=== PATIENT | male | born 1955 | race Caucasian/White ===

== ENCOUNTER 2016-09-17 08:09 | Observation (INO) | payer OTHER ==
[~2016-09-17] VITALS: Ht 180.3 cm; Wt 105.2 kg
[~2016-09-17 08:09] MED LIST: ASPIRIN LOW DOS81 M2 PO; ATIVAN0.5 MG PO; ATORVASTATIN CA40 MG PO; BACTRIM DS1 TAB PO; DICLOFENAC75 MG PO; FLEXERIL PO; FLUOXETINE10 M2 PO; FLUOXETINE40 MG PO; HYDROXYZ HCL25 MG PO; NAPROSYN500 MG PO; PREVACID30 M1 PO; RISPERIDONE2 MG PO; TYLENOL # 31 TA1 PO; TYLENOL 500MG TAB PO; VOLTAREN1%GEL TOP; ZOFRAN ODT4 MG PO; ZOVIRAX400 MG PO; ZPAK PO
[2016-09-17 08:39] LABS: HEMATOCRIT 41.2 % (39.0-50.0); HEMOGLOBIN 13.2 g/dl (14.0-18.0); IMMATURE GRANULOCYTES 0.3 % (0.0-1.0); MEAN CORPUSCULAR HGB 23.7 pG CALC (26.0-32.0); NEUT# 4.41 thou/uL (1.82-7.42); RED BLOOD COUNT 5.57 mill/uL (4.70-6.10); RED CELL DISTRI WIDTH 15.3 % (11.5-15.5)
[2016-09-17 08:45] LABS: ALBUMIN 4.4 g/dL (3.2-5.0); ALKALINE PHOSPHATASE 100 u/l (38-126); ANION GAP 17 (6-22 (CALC)); BILIRUBIN, TOTAL 0.8 mg/dL (0.0-1.4); BUN 14 mg/dL (9-20); BUN/CREATININE RATIO 15 (12-20 (CALC)); CARBON DIOXIDE 21 mmol/l (22-30); CHLORIDE 106 mmol/l (95-108); CREATININE 0.9 mg/dL (0.7-1.3); GFR > 60 ML/MIN (>=60 (CALC)); GFR FOR AFR.AMER. > 60 ML/MIN (>=60 (CALC)); GLUCOSE 123 mg/dL (75-110); POTASSIUM 4.3 mmol/l (3.5-5.1); SGOT/AST 44 u/l (17-59); SGPT/ALT 76 u/l (21-72); SODIUM 140 mmol/l (137-146); TOTAL PROTEIN 7.6 g/dL (6.3-8.2)
[2016-09-17 08:58] LABS: MYOGLOBIN 21 ng/mL (0 - 121)
[2016-09-17 09:36] LABS: URINE BILIRUBIN - DIPSTICK NEGATIVE (NEGATIVE); URINE BLOOD DIPSTICK NEGATIVE (NEGATIVE); URINE CLARITY CLEAR; URINE COLOR YELLOW; URINE GLUCOSE - DIPSTICK NEGATIVE (NEGATIVE); URINE KETONE NEGATIVE (NEGATIVE); URINE LEUK ESTERASE NEGATIVE (NEGATIVE); URINE NITRITE - DIPSTICK NEGATIVE (Negative); URINE PROTEIN - DIPSTICK TRACE mg/dL (NEG-TRACE); URINE SPECIFIC GRAVITY >=1.030
[2016-09-17 11:49] VITALS: BP 127/67
[2016-09-17 14:04] VITALS: BP 120/73
[2016-09-17 19:50] VITALS: BP 122/68
[2016-09-18] VITALS: BP 141/80
[2016-09-18 05:23] VITALS: BP 147/92
[2016-09-18 09:08] VITALS: BP 135/82
[2016-09-18 10:48] VITALS: BP 135/83
[2016-09-18] MEDS ORDERED: ADLT ASA LOW81 MG PO (11:20)
[2016-09-18] MEDS ORDERED: ATORVASTATIN CA40 MG PO (11:20)
== END 2016-09-18 12:32 | disposition home or self-care (01) | DRG 313 ==
LOC: ENPENDDIS → ED 08:09 → ED-I 09:30 → ED 11:07 → MS2 11:08
PROVIDERS: Emergency Medicine; ADMIT Internal Medicine; ATTEND Internal Medicine
DX: R07.2 Precordial pain (principal); F32.9 Major depressive disorder, single episode, unspecified; F41.0 Panic disorder [episodic paroxysmal anxiety]; M06.9 Rheumatoid arthritis, unspecified; E78.5 Hyperlipidemia, unspecified; Z87.891 Personal history of nicotine dependence; Z91.14 Patient's other noncompliance with medication regimen
CPT/HCPCS: G0378

== ENCOUNTER 2016-12-04 10:31 | Emergency (ER) | payer OTHER ==
[~2016-12-04] VITALS: Ht 180.3 cm; Wt 105.0 kg
[~2016-12-04 10:31] MED LIST changes: +ADLT ASA LOW81 MG PO
[2016-12-04 11:38] LABS: HEMATOCRIT 44.8 % (39.0-50.0); HEMOGLOBIN 14.2 g/dl (14.0-18.0); IMMATURE GRANULOCYTES 0.8 % (0.0-1.0); MEAN CELL VOLUME 73.8 fL CALC (80.0-100.0); MEAN CORPUSCULAR HGB 23.4 pG CALC (26.0-32.0); MEAN CORPUSCULAR HGB CONC 31.7 g/L CALC (32.0-36.0); NEUT# 5.6 thou/uL (1.82-7.42); RED BLOOD COUNT 6.07 mill/uL (4.70-6.10); RED CELL DISTRI WIDTH 15.9 % (11.5-15.5)
[2016-12-04 11:55] LABS: ALBUMIN 4.6 g/dL (3.2-5.0); ALKALINE PHOSPHATASE 123 u/l (38-126); ANION GAP 17 (6-22 (CALC)); BILIRUBIN, TOTAL 0.9 mg/dL (0.0-1.4); BUN 24 mg/dL (9-20); BUN/CREATININE RATIO 26 (12-20 (CALC)); CALCIUM 9.3 mg/dL (8.4-10.2); CARBON DIOXIDE 24 mmol/l (22-30); CHLORIDE 101 mmol/l (95-108); CREATININE 0.9 mg/dL (0.7-1.3); GFR > 60 ML/MIN (>=60 (CALC)); GFR FOR AFR.AMER. > 60 ML/MIN (>=60 (CALC)); GLUCOSE 166 mg/dL (75-110); SGOT/AST 34 u/l (17-59); SGPT/ALT 67 u/l (21-72); SODIUM 138 mmol/l (137-146)
[2016-12-04 12:07] LABS: MYOGLOBIN 46 ng/mL (0 - 121)
[2016-12-04] MEDS ORDERED: LOSARTAN POT50 MG PO (12:25)
[2016-12-04] MEDS ORDERED: NAPROXEN250 MG PO (12:26)
[2016-12-04] MEDS ORDERED: ANTIVERT PO (13:55)
[2016-12-04] MEDS ORDERED: ZOFRAN ODT4 MG PO (13:55)
[2016-12-04 14:04] VITALS: BP 121/72
[2016-12-04 14:04] LABS: URINE BILIRUBIN - DIPSTICK NEGATIVE (NEGATIVE); URINE BLOOD DIPSTICK NEGATIVE (NEGATIVE); URINE CLARITY CLEAR; URINE COLOR YELLOW; URINE GLUCOSE - DIPSTICK NEGATIVE (NEGATIVE); URINE KETONE NEGATIVE (NEGATIVE); URINE LEUK ESTERASE NEGATIVE (NEGATIVE); URINE NITRITE - DIPSTICK NEGATIVE (Negative); URINE PROTEIN - DIPSTICK NEGATIVE (NEG-TRACE)
== END 2016-12-04 14:16 | disposition home or self-care (01) | DRG 149 ==
LOC: ED 10:31
PROVIDERS: Emergency Medicine
DX: R42 Dizziness and giddiness (principal); R11.0 Nausea

== ENCOUNTER 2017-05-24 18:31 | Observation (INO) | payer OTHER ==
[~2017-05-24] VITALS: Ht 152.4 cm; Wt 112.0 kg
[~2017-05-24 18:31] MED LIST changes: +ANTIVERT PO; +LOSARTAN POT50 MG PO; +NAPROXEN250 MG PO
--- NOTE | 2017-05-24 18:44 | NUR ---
PATIENT TO ROOM VIA WHEELCHAIR AND PHYSICIAN NOTIFIED OF PATIENT STATUS
--- NOTE | 2017-05-24 19:06 | NUR ---
MEDICATED WITH NTG PAIN4/10.
[2017-05-24 19:29] LABS: HEMATOCRIT 42.6 % (39.0-50.0); HEMOGLOBIN 13.8 g/dl (14.0-18.0); IMMATURE GRANULOCYTES 0.4 % (0.0-1.0); MEAN CORPUSCULAR HGB 26.1 pG CALC (26.0-32.0); MEAN CORPUSCULAR HGB CONC 32.4 g/L CALC (32.0-36.0); NEUT# 5.93 thou/uL (1.82-7.42); RED BLOOD COUNT 5.28 mill/uL (4.70-6.10); RED CELL DISTRI WIDTH 14.4 % (11.5-15.5)
[2017-05-24 19:53] LABS: MEAN CELL VOLUME 80.7 fL CALC (80.0-100.0)
[2017-05-24 19:58] LABS: ALBUMIN 4.5 g/dL (3.2-5.0); ALKALINE PHOSPHATASE 114 u/l (38-126); ANION GAP 17 (6-22 (CALC)); BILIRUBIN, TOTAL 0.5 mg/dL (0.0-1.4); BUN 15 mg/dL (9-20); BUN/CREATININE RATIO 15 (12-20 (CALC)); CARBON DIOXIDE 23 mmol/l (22-30); CHLORIDE 105 mmol/l (95-108); GFR > 60 ML/MIN (>=60 (CALC)); GFR FOR AFR.AMER. > 60 ML/MIN (>=60 (CALC)); POTASSIUM 4.3 mmol/l (3.5-5.1); SGOT/AST 52 u/l (17-59); SGPT/ALT 71 u/l (21-72); SODIUM 141 mmol/l (137-146); TOTAL PROTEIN 7.4 g/dL (6.3-8.2)
[2017-05-24 20:10] LABS: MYOGLOBIN 83 ng/mL (0 - 121)
--- NOTE | 2017-05-24 20:26 | NUR ---
PT STATES HE IS CHEST PAIN FREE ONLY PAIN IS MUSCLE IN NECK WHICH IS USUAL FOR HIM.
--- NOTE | 2017-05-24 21:38 | NUR ---
REPORT TO SARKIS DAILEY. WILL TRANSPORT IN ABOUT 15
--- NOTE | 2017-05-24 21:45 | NUR ---
Admission Note Report Given to: SARKIS BROOKE Transported by: X Wheelchair Stretcher Transported with: X Nurse Transporter X Patent IV O2 X Marine Engineer Cpvec TRANSPORTED BY LAURA GREEN
[2017-05-24 21:50] VITALS: BP 140/85
--- NOTE | 2017-05-24 21:54 | NUR ---
PT ARRIVED TO FLOOR VIA WHEELCHAIR WITH AUTOMOBILE MECHANIC MOTOR. PT AMBULATED TO BED; VITAL SIGNS OBTAINED. PT ORIENTED TO ROOM AND CALL LIGHT SYSTEM. PT DENIES ANY PAIN OR DISCOMFORT. RESP EVEN AND UNLABORED. LUNGS CLEAR BILAT; DIMINISHED IN BASES. TELE IN PLACE. ABD DISTENDED; SOFT. ACTIVE BOWEL SOUNDS NOTED. PT STATES LAST BM WAS LAST NIGHT. PEDAL PULSES PALPATED BIALT. IV RW PATENT; FLUSHED WITHOUT DIFFICULTY. PT ENCOURAGED TO CALL FOR ASSISTANCE. SAFETY PRECAUTIONS REINFORCED. FREQUENT ROUNDS MADE; CALL LIGHT WITHIN REACH.
--- NOTE | 2017-05-25 00:02 | NUR ---
RESP EVEN AND UNLABORED; NO DISTRESS NOTED. TELE IN PLACE. IV PATENT; NO REDNESS OR EDEMA NOTED. CALL LIGHT WITHIN REACH.
[2017-05-25 00:50] VITALS: BP 148/79
--- NOTE | 2017-05-25 04:10 | NUR ---
ASSESSMENT UNCHANGED. RESP EVEN AND UNLABORED; NO DISTRESS NOTED. TELE IN PLACE. IV PATENT. CALL LIGHT WITHIN REACH.
[2017-05-25 04:40] VITALS: BP 156/87
--- NOTE | 2017-05-25 07:00 | NUR ---
RECEIVED BEDSIDE REPORT FROM MENDY DOCKERY. RESTING IN SUPINE POSITION WITH EYES CLOSED, AWAKENS EASILY. RESPS EVEN AND UNLABORED ON ROOM AIR, TELE MONITO RIN PLACE. #20 RW INFUSING WITHOUT DIFFICULTY, SITE APPEARS HEALTHY. DENIES PAIN OR DISCOMFORT. PLAN OF CARE DISCUSSED. SAFETY PRECAUTIONS REINFORCED. BED IN LOWEST POSITION WITH WHEELS LOCKED. CALL LIGHT WITHIN REACH. ENCOURAGED PT TO CALL FOR ANY NEEDS.
[2017-05-25 08:33] VITALS: BP 153/87
--- NOTE | 2017-05-25 10:20 | NUR ---
DR YANG IN WITH PT, NEW ORDERS RECEIVED.
[2017-05-25 11:07] VITALS: BP 141/93
--- NOTE | 2017-05-25 12:00 | NUR ---
IN HIGH FOWLERS EATING LUNCH. RESPS EVEN AND UNLABORED ON ROOM AIR, TELE MONITOR IN PLACE. DENIES PAIN OR DISCOMFORT. CALL LIGHT WITHIN REACH. WILL CONTINUE TO MONITOR.
[2017-05-25 12:41] LABS: CHOLESTEROL HDL RATIO 3.3 (<4.4 (CALC))
[2017-05-25 14:40] VITALS: BP 139/84
--- NOTE | 2017-05-25 16:00 | NUR ---
IN HIGH FOWLERS WATCHING TV. AT BEDSIDE. DENIES PAIN OR DISCOMFORT. CALL LIGHT WITHIN REACH. WILL CONTINUE TO MONITOR.
--- NOTE | 2017-05-25 19:25 | NUR ---
REPORT RECIEVED; PT RESTING IN SEMI-FOWLERS POSITION WATCHING TV. PT DENIES ANY PAIN OR DISCOMFORT. PLAN OF CARE DISCUSSED. SAFETY PRECAUTIONS REINFORCED. FREQUENT ROUNDS MADE; CALL LIGHT WITHIN REACH.
[2017-05-25 19:50] VITALS: BP 142/76
--- NOTE | 2017-05-25 20:50 | NUR ---
PT RESTING IN HIGH FOWLERS POSITION WATCHING TV; RESP EVEN AND UNLABORED. TELE IN PLACE. ABD DISTENDED; SOFT. ACTIVE BOWEL SIGNS NOTED. PEDAL PULSES PALPATED BILAT. IV RW PATENT; FLUSHED WITHOUT DIFFICULTY. PT ENCOURAGED TO CALL FOR ASSISTANCE. SAFETY PRECAUTIONS REINFORCED. CALL LIGHT WITHIHN REACH.
[2017-05-26 00:15] VITALS: BP 142/85
--- NOTE | 2017-05-26 00:40 | NUR ---
PT WOKE FOR VITALS; RESP EVEN AND UNLABORED. TELE IN PLACE. PT DENIES PAIN OR DISCOMFORT. CALL LIGHT WITHIN REACH.
[2017-05-26 03:15] VITALS: BP 136/87
--- NOTE | 2017-05-26 04:01 | NUR ---
ASSESSMENT UNCHANGED. TELE IN PLACE. RESP EVEN AND UNLABORED; NO DISTRESS NOTED. CALL LIGHT WITHIN REACH.
[2017-05-26 07:46] VITALS: BP 140/81
[2017-05-26 08:15] VITALS: BP 140/85
--- NOTE | 2017-05-26 08:15 | NUR ---
ASSESSMENT IS COMPLETED: IV SITE IS FREE FROM, REDNESS OR EDEMA. BREATH SOUNDS ARE CLEAR.BILATERALLY, NO C/OS OB, HR IS REG, PULSES ARE STRONG X4, ABD IS SOFT WITH ACTIVE BS.
[2017-05-26 10:46] VITALS: BP 124/72
[2017-05-26] MEDS ORDERED: METO25TAB PO (13:00)
--- NOTE | 2017-05-26 14:15 | NUR ---
Discharge instructions given. Patient verbalizes understanding of same. Discharged in stable condition via Wheelchair to Home with family. All belongings sent with pt.
== END 2017-05-26 14:15 | disposition home or self-care (01) | DRG 313 ==
LOC: ED 18:31 → ED-I 20:00 → ED 21:05 → MS2 21:06
PROVIDERS: Emergency Medicine; Hospitalist; ADMIT Internal Medicine; ATTEND Internal Medicine
DX: R07.2 Precordial pain (principal); I10 Essential (primary) hypertension; E78.5 Hyperlipidemia, unspecified; E66.9 Obesity, unspecified; F32.9 Major depressive disorder, single episode, unspecified; M06.9 Rheumatoid arthritis, unspecified; F41.0 Panic disorder [episodic paroxysmal anxiety]; Z87.891 Personal history of nicotine dependence; Z82.49 Family history of ischemic heart disease and other diseases of the circulatory system
CPT/HCPCS: G0378

== ENCOUNTER 2017-09-28 12:18 | Emergency (ER) | payer OTHER ==
[~2017-09-28] VITALS: Ht 180.3 cm; Wt 109.0 kg
[~2017-09-28 12:18] MED LIST changes: +METO25TAB PO
[2017-09-28] MEDS ORDERED: ISOSORB MONO30 MG PO (12:28)
[2017-09-28] MEDS ORDERED: ULTRAM50 M1 PO (12:33)
[2017-09-28] MEDS ORDERED: MEDDOSEPAK PO (12:33)
[2017-09-28 12:56] VITALS: BP 172/93
== END 2017-09-28 13:05 | disposition home or self-care (01) ==
LOC: ED 12:18
DX: M16.12 Unilateral primary osteoarthritis, left hip (principal); I10 Essential (primary) hypertension; F41.0 Panic disorder [episodic paroxysmal anxiety]; M54.2 Cervicalgia; G89.29 Other chronic pain

== ENCOUNTER 2018-01-24 06:44 | Emergency (ER) | payer OTHER ==
[~2018-01-24] VITALS: Ht 180.3 cm; Wt 114.0 kg
[~2018-01-24 06:44] MED LIST changes: +ISOSORB MONO30 MG PO; +MEDDOSEPAK PO; +ULTRAM50 M1 PO
[2018-01-24 07:13] LABS: HEMATOCRIT 39.4 % (39.0-50.0); HEMOGLOBIN 12.9 g/dl (14.0-18.0); IMMATURE GRANULOCYTES 0.6 % (0.0-5.0); MEAN CORPUSCULAR HGB 29.9 pG CALC (26.0-32.0); MEAN CORPUSCULAR HGB CONC 32.7 g/L CALC (32.0-36.0); NEUT# 5.43 thou/uL (1.82-7.42); RED BLOOD COUNT 4.32 mill/uL (4.70-6.10); RED CELL DISTRI WIDTH 14.7 % (11.5-15.5)
[2018-01-24 07:16] LABS: MEAN CELL VOLUME 91.2 fL CALC (80.0-100.0)
[2018-01-24 08:10] LABS: ALBUMIN 4.3 g/dL (3.2-5.0); ALKALINE PHOSPHATASE 97 u/l (38-126); ANION GAP 16 (6-22 (CALC)); BILIRUBIN, TOTAL 0.7 mg/dL (0.0-1.4); BUN 21 mg/dL (8-23); BUN/CREATININE RATIO 25 (12-20 (CALC)); CARBON DIOXIDE 25 mmol/l (22-30); CHLORIDE 100 mmol/l (95-108); CREATININE 0.9 mg/dL (0.7-1.3); GFR > 60 ML/MIN (>=60 (CALC)); GFR FOR AFR.AMER. > 60 ML/MIN (>=60 (CALC)); POTASSIUM 4.5 mmol/l (3.5-5.1); SGOT/AST 37 u/l (19-48); SODIUM 137 mmol/l (137-146); TOTAL PROTEIN 7.3 g/dL (6.3-8.2)
[2018-01-24] MEDS ORDERED: ATIVAN1 MG PO (08:27)
[2018-01-24] MEDS ORDERED: ZOFRAN ODT4 MG PO (08:43)
[2018-01-24 08:50] VITALS: BP 146/82
== END 2018-01-24 08:57 | disposition home or self-care (01) ==
LOC: ED 06:44
PROVIDERS: Family Medicine
DX: F41.0 Panic disorder [episodic paroxysmal anxiety] (principal); I10 Essential (primary) hypertension; M19.90 Unspecified osteoarthritis, unspecified site; R06.02 Shortness of breath

== ENCOUNTER 2018-02-27 10:00 | Emergency (ER) | payer OTHER ==
[~2018-02-27] VITALS: Ht 180.3 cm; Wt 110.0 kg
[~2018-02-27 10:00] MED LIST changes: +ATIVAN1 MG PO
[2018-02-27] MEDS ORDERED: ATIVAN1 MG PO (10:28)
[2018-02-27 10:46] VITALS: BP 157/95
== END 2018-02-27 10:54 | disposition home or self-care (01) ==
LOC: ED 10:00
DX: F41.9 Anxiety disorder, unspecified (principal); Z76.0 Encounter for issue of repeat prescription

== ENCOUNTER 2018-04-27 11:55 | Emergency (ER) | payer OTHER ==
[~2018-04-27] VITALS: Ht 180.3 cm; Wt 110.0 kg
[2018-04-27] MEDS ORDERED: FLUOXETINE20 MG PO (12:23)
[2018-04-27] MEDS ORDERED: ATIVAN0.5 MG PO (12:23)
[2018-04-27] MEDS ORDERED: METOPROL TAR25 MG PO (12:27)
[2018-04-27] MEDS ORDERED: LIPITOR40 M1 PO (12:29)
[2018-04-27 12:54] LABS: ALBUMIN 4.5 g/dL (3.2-5.0); ALKALINE PHOSPHATASE 108 u/l (38-126); ANION GAP 16 (6-22 (CALC)); BILIRUBIN, TOTAL 0.5 mg/dL (0.0-1.4); BUN 17 mg/dL (8-23); BUN/CREATININE RATIO 19 (12-20 (CALC)); CARBON DIOXIDE 25 mmol/l (22-30); CHLORIDE 102 mmol/l (95-108); CREATININE 0.9 mg/dL (0.7-1.3); ETHYL ALCOHOL 0 mg/dl (0-30); GFR > 60 ML/MIN (>=60 (CALC)); GFR FOR AFR.AMER. > 60 ML/MIN (>=60 (CALC)); LIPASE 145 u/l (23-300); POTASSIUM 4.4 mmol/l (3.5-5.1); SGOT/AST 40 u/l (19-48); SODIUM 138 mmol/l (137-146); TOTAL PROTEIN 7.5 g/dL (6.3-8.2)
[2018-04-27 12:57] LABS: HEMATOCRIT 41.4 % (39.0-50.0); HEMOGLOBIN 13.8 g/dl (14.0-18.0); IMMATURE GRANULOCYTES 0.5 % (0.0-5.0); MEAN CELL VOLUME 88.5 fL CALC (80.0-100.0); MEAN CORPUSCULAR HGB 29.5 pG CALC (26.0-32.0); MEAN CORPUSCULAR HGB CONC 33.3 g/L CALC (32.0-36.0); NEUT# 8.79 thou/uL (1.82-7.42); RED BLOOD COUNT 4.68 mill/uL (4.70-6.10); RED CELL DISTRI WIDTH 13.7 % (11.5-15.5)
[2018-04-27 14:29] LABS: BARBITURATES NEGATIVE (NEGATIVE); COCAINE NEGATIVE (NEGATIVE); METHADONE NEGATIVE (NEGATIVE); OXCYCODONE NEGATIVE (NEGATIVE); TETRAHYDROCANNABIONOL NEGATIVE (NEGATIVE); TRICYLIC ANTIDEPRESSANTS NEGATIVE (NEGATIVE)
[2018-04-27] MEDS ORDERED: PROTONIX40 M2 PO (15:25)
[2018-04-27 15:55] VITALS: BP 181/82
== END 2018-04-27 16:03 | disposition home or self-care (01) ==
LOC: ED 11:55
PROVIDERS: Emergency Medicine
DX: R07.89 Other chest pain (principal); R42 Dizziness and giddiness; R10.13 Epigastric pain; I10 Essential (primary) hypertension

== ENCOUNTER 2018-07-09 09:56 | Emergency (ER) | payer OTHER ==
[~2018-07-09] VITALS: Ht 180.3 cm; Wt 110.5 kg
[~2018-07-09 09:56] MED LIST changes: +FLUOXETINE20 MG PO; +LIPITOR40 M1 PO; +METOPROL TAR25 MG PO; +PROTONIX40 M2 PO
[2018-07-09] MEDS ORDERED: VOLTAREN - GENE75 MG PO (11:13)
[2018-07-09 11:37] VITALS: BP 168/97
== END 2018-07-09 11:38 | disposition home or self-care (01) ==
LOC: ED 09:56
DX: M47.22 Other spondylosis with radiculopathy, cervical region (principal); I10 Essential (primary) hypertension

== ENCOUNTER 2018-08-31 05:48 | Emergency (ER) | payer OTHER ==
[~2018-08-31] VITALS: Ht 152.4 cm; Wt 109.1 kg
[~2018-08-31 05:48] MED LIST changes: +VOLTAREN - GENE75 MG PO
[2018-08-31] MEDS ORDERED: ASPIRIN CHEWABL81 MG PO (06:06)
[2018-08-31 06:37] LABS: HEMOGLOBIN 14.1 g/dl (14.0-18.0); IMMATURE GRANULOCYTES 0.4 % (0.0-5.0); MEAN CELL VOLUME 88.5 fL CALC (80.0-100.0); MEAN CORPUSCULAR HGB CONC 32.8 g/L CALC (32.0-36.0); NEUT# 6.23 thou/uL (1.82-7.42); RED BLOOD COUNT 4.86 mill/uL (4.70-6.10)
[2018-08-31 06:57] LABS: ALBUMIN 4.4 g/dL (3.2-5.0); ALKALINE PHOSPHATASE 107 u/l (38-126); ANION GAP 16 (6-22 (CALC)); BUN 12 mg/dL (8-23); BUN/CREATININE RATIO 14 (12-20 (CALC)); CARBON DIOXIDE 23 mmol/l (22-30); CHLORIDE 100 mmol/l (95-108); CREATININE 0.8 mg/dL (0.7-1.3); GFR > 60 ML/MIN (>=60 (CALC)); GFR FOR AFR.AMER. > 60 ML/MIN (>=60 (CALC)); POTASSIUM 4.3 mmol/l (3.5-5.1); SGOT/AST 52 u/l (19-48); SODIUM 136 mmol/l (137-146); TOTAL PROTEIN 7.2 g/dL (6.3-8.2)
[2018-08-31 07:07] LABS: MYOGLOBIN 29 ng/mL (0 - 121)
[2018-08-31] MEDS ORDERED: TORADOL PO (11:06)
[2018-08-31 11:11] VITALS: BP 127/79
== END 2018-08-31 11:15 | disposition home or self-care (01) ==
LOC: ED 05:48
PROVIDERS: Family Medicine
DX: R07.89 Other chest pain (principal); I10 Essential (primary) hypertension

== ENCOUNTER 2018-10-08 08:11 | Emergency (ER) | payer OTHER ==
[~2018-10-08] VITALS: Ht 177.8 cm; Wt 110.5 kg
[~2018-10-08 08:11] MED LIST changes: +ASPIRIN CHEWABL81 MG PO; +TORADOL PO
[2018-10-08] MEDS ORDERED: TORADOL PO (08:42)
[2018-10-08] MEDS ORDERED: ZITHROMAX250 MG PO (08:42)
[2018-10-08] MEDS ORDERED: ONDANSETRON4 MG PO (08:46)
[2018-10-08 08:47] VITALS: BP 160/88
== END 2018-10-08 09:01 | disposition home or self-care (01) ==
LOC: ED 08:11
DX: J02.9 Acute pharyngitis, unspecified (principal)

== ENCOUNTER 2018-12-01 08:28 | Emergency (ER) | payer OTHER ==
[~2018-12-01] VITALS: Ht 177.8 cm; Wt 110.0 kg
[~2018-12-01 08:28] MED LIST changes: +ONDANSETRON4 MG PO; +ZITHROMAX250 MG PO
[2018-12-01 09:00] LABS: HEMATOCRIT 43.2 % (39.0-50.0); HEMOGLOBIN 14.1 g/dl (14.0-18.0); IMMATURE GRANULOCYTES 0.4 % (0.0-5.0); MEAN CELL VOLUME 89.8 fL CALC (80.0-100.0); MEAN CORPUSCULAR HGB 29.3 pG CALC (26.0-32.0); MEAN CORPUSCULAR HGB CONC 32.6 g/L CALC (32.0-36.0); NEUT# 7.1 thou/uL (1.82-7.42); RED BLOOD COUNT 4.81 mill/uL (4.70-6.10); RED CELL DISTRI WIDTH 13.9 % (11.5-15.5)
[2018-12-01 09:07] LABS: ALBUMIN 4.6 g/dL (3.2-5.0); ALKALINE PHOSPHATASE 96 u/l (38-126); ANION GAP 18 (6-22 (CALC)); BILIRUBIN, TOTAL 0.8 mg/dL (0.0-1.4); BUN 13 mg/dL (8-23); BUN/CREATININE RATIO 16 (12-20 (CALC)); CARBON DIOXIDE 25 mmol/l (22-30); CHLORIDE 100 mmol/l (95-108); CREATININE 0.8 mg/dL (0.7-1.3); GFR > 60 ML/MIN (>=60 (CALC)); GFR FOR AFR.AMER. > 60 ML/MIN (>=60 (CALC)); LIPASE 120 u/l (23-300); POTASSIUM 4.6 mmol/l (3.5-5.1); SGOT/AST 50 u/l (19-48); SODIUM 138 mmol/l (137-146); TOTAL PROTEIN 7.5 g/dL (6.3-8.2)
[2018-12-01 10:01] LABS: URINE BLOOD DIPSTICK TRACE-LYSED (NEGATIVE); URINE COLOR YELLOW; URINE GLUCOSE - DIPSTICK NEGATIVE (NEGATIVE); URINE KETONE TRACE mg/dL (NEGATIVE); URINE LEUK ESTERASE NEGATIVE (NEGATIVE); URINE NITRITE - DIPSTICK NEGATIVE (Negative); URINE PH 5.5 (4.5-8.0); URINE PROTEIN - DIPSTICK TRACE mg/dL (NEG-TRACE); URINE SPECIFIC GRAVITY >=1.030; URINE UROBILINOGEN - DIPSTICK 0.2 E.U./dL (0.2)
[2018-12-01 10:05] LABS: URINE BILIRUBIN - DIPSTICK MODERATE (NEGATIVE)
[2018-12-01] MEDS ORDERED: HYOSCYAMINE0.125 M3 PO (10:22)
[2018-12-01 10:40] VITALS: BP 142/68
[2018-12-01] MEDS ORDERED: ONDANSETRON4 MG PO (10:41)
== END 2018-12-01 10:40 | disposition home or self-care (01) ==
LOC: ED 08:28
PROVIDERS: Family Medicine
DX: K52.9 Noninfective gastroenteritis and colitis, unspecified (principal); I10 Essential (primary) hypertension
CPT/HCPCS: Q9967

== ENCOUNTER 2018-12-22 14:03 | Emergency (ER) | payer OTHER ==
[~2018-12-22] VITALS: Ht 177.8 cm; Wt 117.0 kg
[~2018-12-22 14:03] MED LIST changes: +HYOSCYAMINE0.125 M3 PO
[2018-12-22 15:00] LABS: HEMATOCRIT 42.7 % (39.0-50.0); IMMATURE GRANULOCYTES 0.4 % (0.0-5.0); MEAN CELL VOLUME 88.8 fL CALC (80.0-100.0); MEAN CORPUSCULAR HGB 29.1 pG CALC (26.0-32.0); MEAN CORPUSCULAR HGB CONC 32.8 g/L CALC (32.0-36.0); NEUT# 5.34 thou/uL (1.82-7.42); RED BLOOD COUNT 4.81 mill/uL (4.70-6.10); RED CELL DISTRI WIDTH 13.4 % (11.5-15.5)
[2018-12-22 15:52] LABS: ALBUMIN 4.4 g/dL (3.2-5.0); ALKALINE PHOSPHATASE 116 u/l (38-126); ANION GAP 15 (6-22 (CALC)); BILIRUBIN, TOTAL 0.8 mg/dL (0.0-1.4); BUN 13 mg/dL (8-23); BUN/CREATININE RATIO 15 (12-20 (CALC)); CARBON DIOXIDE 24 mmol/l (22-30); CHLORIDE 99 mmol/l (95-108); CREATININE 0.9 mg/dL (0.7-1.3); GFR > 60 ML/MIN (>=60 (CALC)); GFR FOR AFR.AMER. > 60 ML/MIN (>=60 (CALC)); LIPASE 113 u/l (23-300); POTASSIUM 4.5 mmol/l (3.5-5.1); SGOT/AST 40 u/l (19-48); SODIUM 134 mmol/l (137-146); TOTAL PROTEIN 7.1 g/dL (6.3-8.2)
[2018-12-22 16:27] LABS: URINE BILIRUBIN - DIPSTICK NEGATIVE (NEGATIVE); URINE BLOOD DIPSTICK TRACE-INTACT (NEGATIVE); URINE COLOR YELLOW; URINE GLUCOSE - DIPSTICK NEGATIVE (NEGATIVE); URINE KETONE NEGATIVE (NEGATIVE); URINE LEUK ESTERASE NEGATIVE (NEGATIVE); URINE NITRITE - DIPSTICK NEGATIVE (Negative); URINE PROTEIN - DIPSTICK NEGATIVE (NEG-TRACE); URINE SPECIFIC GRAVITY 1.015
[2018-12-22] MEDS ORDERED: HYOSCYAMINE0.125 M3 PO (17:26)
[2018-12-22 17:45] VITALS: BP 166/74
== END 2018-12-22 17:45 | disposition home or self-care (01) ==
LOC: ED 14:03
PROVIDERS: Family Medicine
DX: R10.84 Generalized abdominal pain (principal); I10 Essential (primary) hypertension

== ENCOUNTER 2019-02-22 03:19 | Observation (INO) | payer OTHER ==
[~2019-02-22] VITALS: Ht 177.8 cm; Wt 101.0 kg
[2019-02-22 03:50] LABS: HEMATOCRIT 42.8 % (39.0-50.0); HEMOGLOBIN 14.5 g/dl (14.0-18.0); IMMATURE GRANULOCYTES 0.3 % (0.0-5.0); MEAN CELL VOLUME 87.3 fL CALC (80.0-100.0); MEAN CORPUSCULAR HGB 29.6 pG CALC (26.0-32.0); MEAN CORPUSCULAR HGB CONC 33.9 g/L CALC (32.0-36.0); NEUT# 5.92 thou/uL (1.82-7.42); RED BLOOD COUNT 4.9 mill/uL (4.70-6.10); RED CELL DISTRI WIDTH 13.7 % (11.5-15.5)
--- NOTE | 2019-02-22 03:50 | NUR ---
PT REQUESTING TO GO TO BR TO MOVE HIS BOWELS. EQUIP DC'D AND PT UP TO BR.
[2019-02-22 04:02] LABS: ALBUMIN 4.4 g/dL (3.2-5.0); ALKALINE PHOSPHATASE 89 u/l (38-126); AMYLASE 60 u/l (30-110); ANION GAP 18 (6-22 (CALC)); BILIRUBIN, TOTAL 0.8 mg/dL (0.0-1.4); BUN 11 mg/dL (8-23); BUN/CREATININE RATIO 14 (12-20 (CALC)); CARBON DIOXIDE 21 mmol/l (22-30); CHLORIDE 100 mmol/l (95-108); CREATININE 0.8 mg/dL (0.7-1.3); GFR > 60 ML/MIN (>=60 (CALC)); GFR FOR AFR.AMER. > 60 ML/MIN (>=60 (CALC)); LIPASE 90 u/l (23-300); SGOT/AST 24 u/l (19-48); SODIUM 135 mmol/l (137-146); TOTAL PROTEIN 7.5 g/dL (6.3-8.2)
--- NOTE | 2019-02-22 04:06 | NUR ---
EMERGENCY LIGHT GOING OFF IN BR. PT SITTING ON FLOOR WITH BACK AGAINST THE WALL. STATES AFTER HE GOT UP HE GOT DIZZY AND FELL. DENIES PAIN AND DENIES INJURY. WHEELCHAIR TO BR. PT GOT HIMSELF OFF OF THE FLOOR AND TO THE BR. PT TO ROOM AND TRANSFERRED SELF TO STRETCHER. BP 108/. PT PLACED IN TRENDELENBERG... NOTIFIED. TO BEDSIDE.
--- NOTE | 2019-02-22 04:29 | NUR ---
SAT IN LOW 90. 2 LPM NC APPLIED.
--- NOTE | 2019-02-22 04:30 | NUR ---
WARM BLANKET GIVEN. AT BEDSIDE. IVF INFUSING. VSS.
--- NOTE | 2019-02-22 04:41 | NUR ---
PT REMOVED FROM TRENDELENBERG . 500CC OF IVF INFUSED. PT RESTING. 139/62 57 98 % @ 2 LPM NC. PT TO RADIOLOGY.
[2019-02-22 05:18] LABS: URINE BLOOD DIPSTICK NEGATIVE (NEGATIVE); URINE COLOR YELLOW; URINE GLUCOSE - DIPSTICK NEGATIVE (NEGATIVE); URINE KETONE NEGATIVE (NEGATIVE); URINE LEUK ESTERASE NEGATIVE (NEGATIVE); URINE NITRITE - DIPSTICK NEGATIVE (Negative); URINE PH 5.5 (4.5-8.0); URINE PROTEIN - DIPSTICK NEGATIVE (NEG-TRACE); URINE SPECIFIC GRAVITY 1.025; URINE UROBILINOGEN - DIPSTICK 0.2 E.U./dL (0.2)
[2019-02-22 05:25] LABS: URINE BILIRUBIN - DIPSTICK NEGATIVE (NEGATIVE)
[2019-02-22 06:18] LABS: MYOGLOBIN 39 ng/mL (0 - 121)
--- NOTE | 2019-02-22 06:40 | NUR ---
REPORT RECIEVED FROM LAURA TERRAZAS; PT RESTING ON STRETCHER; C/O ABD PAIN RATING 8 OUT OF 10; PT ASSISTED WITH USE OF URINEAL; 300ML DARK URINE NOTED; MONITORING DEVICES IN PLACE; VSS; SPOUSE AT BEDSIDE; WILL MEDICATED WHEN AVAILABLE; CALL LIGHT WITHIN REACH; WILL CONTINUE TO MONITOR
--- NOTE | 2019-02-22 07:40 | NUR ---
PT MEDICATED WITH MORPHINE AND ZOFRAN PER PRN ORDERS FOR ABD PAIN RATING 10 OUT OF 10 AND NAUSEA; VSS; SPOUSE AT BEDSIDE; PT UPDATED ON POC FOR ADMISSION, PT VERBALIZES UNDERSTANDING; CALL LIGHT WITHIN REACH; WILL CONTINUE TO MONITOR
[2019-02-22 08:50] VITALS: BP 156/90
--- NOTE | 2019-02-22 09:00 | NUR ---
PT ARRIVES TO ROOM 277 VIA STRETCHER FROM ER, ACCOMPANIED BY LUCIO SANCHEZ. PT WITH CLEAR LUNGS, RA. BM TODAY. ABDOMEN TENDER. PT UPDATED ON FINDINGS FROM EARLIER. PT STATES PAIN IN ABDOMEN WAS HELPED BY MORPHINE. AT BEDSIDE UPON ARRIVAL TO ROOM.
[2019-02-22 11:01] VITALS: BP 128/73
--- NOTE | 2019-02-22 12:00 | NUR ---
PT AT REST IN THE BED, DISCOMFORT ABDOMINALLY. NO NAUSEA OR VOMITING. AT BEDSIDE INTERMITTENTLY.
--- NOTE | 2019-02-22 14:36 | NUR ---
SIGNIFICANT OTHER CURLY HAS LEFT PHONE NUMBER TO CONTACT HER IF NEEDED, .
[2019-02-22 16:31] VITALS: BP 121/78
--- NOTE | 2019-02-22 18:00 | NUR ---
PT PROVIDED DILAUDID FOR ABDOMINAL PAIN, SAYING THAT THE MORPHINE DID NOT LAST MORE THAN 2 HOURS, LEAVING HIM UNCOMFORTABLE FOR OVER AN HOUR.
[2019-02-22 19:00] VITALS: BP 124/74
--- NOTE | 2019-02-22 20:04 | NUR ---
ASSESSMENT COMPLETED. IV SITE PATENT AND IVF INFUSING WELL. C/O SLIGHT PAIN TO ABDOMEN AND EDUCATED ON FFREQUENCIES FOR PAIN MEDICATIONS AND VERBALIZES UNDERSTANDING. DENIES NEEDS FOR PAIN MEDS AT THIS TIME. ADAIR GILBERTP IN AT BEDSIDE AND UPDATED PT. THAT HE WILL BE DRINKING NULYTELY FOR SCOPE IN AM. PT. VERBALIZES UNDERSTANDING. VERIFIED ALLERGIES WITH PT.. PT. ENCOURAGED TO CALL FOR ANY NEEDS. CALL LIGHT IS IN REACH. WILL CONTINUE TO MONITOR.
--- NOTE | 2019-02-22 21:09 | NUR ---
PT. C/O ABD PAIN AND MEDICATED WITH ORDERED PRN DILAUDID PER ORDER. NULYTLEY STARTED PER ORDER, PT. INSTRUCTED TO FINISH BEFORE MIDNIGHT AND FIRST LINER POURED, ENCOURAGED TO DRINK. BSC AT BEDSIDE. CALL LIGHT IS IN REACH.
--- NOTE | 2019-02-22 22:20 | NUR ---
PT. SITTING UP DRINKING NULYTELY AND ENCOURAGED TO KEEP DRINKING. VOICES NO NEEDS. CALL LIGHT IS IN REACH.
[2019-02-22 23:27] VITALS: BP 108/71
--- NOTE | 2019-02-22 23:29 | NUR ---
PT. UP USING BSC HAVING A BM AND DRINKING NULYTELY. ENCOURAGED TO DRINK TOTAL AMOUNT OF THIS. NO DISTRESS NOTED; VSS. NEW BAG ORDERED IVF HUNG. CALL LIGHT IS IN REACH.
[2019-02-23] VITALS (11 sets, daily range): BP systolic 126–174; BP diastolic 74–88
--- NOTE | 2019-02-23 01:45 | NUR ---
PT. SITTING UP IN BED WITH NO DISTRESS NOTED. DENIES NEEDS/PAIN. BSC EMPTIED. PT. STILL WITH WATERY BROWN STOOLS POST FINISHING NULYTELY. DENIES NEEDS. CALL LIGHT IS IN REACH.
--- NOTE | 2019-02-23 04:15 | NUR ---
EKG DONE AND PER RT NOW SR WITH MULTIPLE PAC'S.
--- NOTE | 2019-02-23 04:45 | NUR ---
NEW IV STARTED TO RHAND X2 ATTEMPT, #22 GAUGE; PT. TOLERATED WELL. EMS SITE REMOVED FROM LEFT HAND WITH CATHETER TIP INTACT. PT. HAS REMAINED NPO.
--- NOTE | 2019-02-23 05:00 | NUR ---
PT. C/O ABD PAIN 10/01 AND MEDICATED WITH ORDERED DILAUDID, WILL REASSESS.
[2019-02-23 05:04] LABS: HEMATOCRIT 39.8 % (39.0-50.0); HEMOGLOBIN 12.9 g/dl (14.0-18.0); IMMATURE GRANULOCYTES 0.3 % (0.0-5.0); MEAN CORPUSCULAR HGB 29.2 pG CALC (26.0-32.0); MEAN CORPUSCULAR HGB CONC 32.4 g/L CALC (32.0-36.0); NEUT# 4.56 thou/uL (1.82-7.42); RED BLOOD COUNT 4.42 mill/uL (4.70-6.10); RED CELL DISTRI WIDTH 14.3 % (11.5-15.5)
--- NOTE | 2019-02-23 05:10 | NUR ---
INCONTINENT OF LARGE WATERY STOOL.PT. SET UP FOR SHOWER AND PT. WASHED HIMSELF UP IN BATHROOM. LINENS CHANGED. PT. DENIES FURTHER NEEDS. CALL LIGHT IS IN REACH. WILL CONTINUE TO MONITOR.
[2019-02-23 05:29] LABS: ALBUMIN 3.7 g/dL (3.2-5.0); ALKALINE PHOSPHATASE 69 u/l (38-126); ANION GAP 13 (6-22 (CALC)); BILIRUBIN, TOTAL 0.6 mg/dL (0.0-1.4); BUN 8 mg/dL (8-23); BUN/CREATININE RATIO 11 (12-20 (CALC)); CARBON DIOXIDE 23 mmol/l (22-30); CHLORIDE 105 mmol/l (95-108); CREATININE 0.7 mg/dL (0.7-1.3); GFR > 60 ML/MIN (>=60 (CALC)); GFR FOR AFR.AMER. > 60 ML/MIN (>=60 (CALC)); POTASSIUM 4.4 mmol/l (3.5-5.1); SGOT/AST 22 u/l (19-48); SODIUM 135 mmol/l (137-146); TOTAL PROTEIN 6.4 g/dL (6.3-8.2)
--- NOTE | 2019-02-23 07:35 | NUR ---
PLACED A CALL TO OR RE: PROCEDURES ON PT TODAY. UNAWARE, DR. TIRADO IS AWARE AND WILL SEE PT.
--- NOTE | 2019-02-23 08:15 | NUR ---
ASSESSMENT IS COMPLTED: IV SITE IS FREE FROM REDNESS OR EDEMA. HR IS REG,PULSES ARE STRONG X4, ABD IS SOFT WITH ACTIVE BS. BREATH SOUNDS ARE CLEAR ,BILATERALLY. CONTINUE TO OSBERVE AND MONITOR
--- NOTE | 2019-02-23 09:24 | NUR ---
called operating room regarding this pt to find dr. thompson. keith told ad copy writer he was aware about the consultation and will be up to see pt in a little while.
--- NOTE | 2019-02-23 09:53 | NUR ---
DR TIRADO IN TO SEE PT WILL TAKE FOR A PROCEDURE 11-12. PT REMAINS NPO
--- NOTE | 2019-02-23 11:46 | NUR ---
PT BEING TRANSFERRED TO OR VIA STRETCHER ACCOMPANIED BY STAFF. PLACED PT'S RING ON BEDSIDE TABLE WITH GLASSES
--- NOTE | 2019-02-23 12:15 | NUR ---
PT REMAINS IN OR
--- NOTE | 2019-02-23 14:15 | NUR ---
PT ARRIVED FROM OR VIA STRETCHER ACCOMPANIED BY STAFF. IV SITE REMAINS INTACT. ON LEFT WRIST AND A NEW ONE ON THE RW WITH # 20. PLACED BY OR STAFF. PT ASKING FOR PAIN MEDICATIONS AND FOOD.
--- NOTE | 2019-02-23 16:15 | NUR ---
PT IS RESTING IN BED WITH NO DISTRESS NOTED. IV SITE IS FREE FROM REDNESS OR EDMEA. OR PLACED A 2ND IV SITE IN RW WITH # 20. PLACED IV FLUIDS. AND HEPLOCKED THE LW.
--- NOTE | 2019-02-23 19:25 | NUR ---
IV FLUIDS REPLENISHED, PT IN BED IN LOW FOWLERS. REPORT FROM DAY NURSE RECEIVED. PT DENIES ANY NEEDS AT THIS TIME. NO S/O DISTRESS NOTED. CALL LIGHT IS IN HAND AND PT ENCOURAGED TO CALL NEEDS ARISE.
--- NOTE | 2019-02-23 20:14 | NUR ---
PT ASSESSMENT COMPLETED AT THIS TIME AND PT MEDICATED W/PM MEDICATIONS. PT C/O PAIN 10/01, DISCUSSED PAIN MEDICATIONS AND TAPERING OFF DILAUDID TO GO HOME, PT VERBALIZED UNDERSTANDING, BUT STATED THAT THE BED IS HURTING HIS BACK AND ASKED FOR DILAUDID. PT LOCX4, TV AND LIGHTS ARE ON.
--- NOTE | 2019-02-23 20:41 | NUR ---
PT MEDICATED FOR PAIN 7/10 ON PAIN SCALE IN ABD AND BACK.
--- NOTE | 2019-02-24 00:18 | NUR ---
PT SLEEPING AT THIS TIME. NO S/O DISTRESS NOTED. CALL LIGHT W/IN REACH
[2019-02-24 00:46] VITALS: BP 141/77
--- NOTE | 2019-02-24 02:59 | NUR ---
PT MEDICATED FOR PAIN REPORTED 8/10 ON PAIN SCALE. URINAL EMPTIED OF 1000CC OF CLEAR YELLOW URINE. PT PROVIDED FRESH PO FLUIDS/REPLENISHED AND IVF REPLACED. PT DENIES ANY OTHER NEEDS. CALL LIGHT W/IN REACH.
[2019-02-24 03:35] VITALS: BP 145/91
[2019-02-24 04:59] LABS: HEMATOCRIT 38.9 % (39.0-50.0); HEMOGLOBIN 12.6 g/dl (14.0-18.0); IMMATURE GRANULOCYTES 0.4 % (0.0-5.0); MEAN CELL VOLUME 89.2 fL CALC (80.0-100.0); MEAN CORPUSCULAR HGB 28.9 pG CALC (26.0-32.0); MEAN CORPUSCULAR HGB CONC 32.4 g/L CALC (32.0-36.0); NEUT# 5.79 thou/uL (1.82-7.42); RED BLOOD COUNT 4.36 mill/uL (4.70-6.10); RED CELL DISTRI WIDTH 13.9 % (11.5-15.5)
[2019-02-24 05:15] LABS: ANION GAP 12 (6-22 (CALC)); BUN 3 mg/dL (8-23); BUN/CREATININE RATIO 5 (12-20 (CALC)); CARBON DIOXIDE 25 mmol/l (22-30); CHLORIDE 102 mmol/l (95-108); CREATININE 0.7 mg/dL (0.7-1.3); GFR > 60 ML/MIN (>=60 (CALC)); GFR FOR AFR.AMER. > 60 ML/MIN (>=60 (CALC)); POTASSIUM 3.9 mmol/l (3.5-5.1); SODIUM 135 mmol/l (137-146)
--- NOTE | 2019-02-24 06:21 | NUR ---
PT MEDICATED FOR PAIN 7/10 ON PAIN SCALE, POC AND DISCHARGE/MEDICATIONS DISCUSSED W/PT AND PT EDUCATED REGARDING MEDICAITONS AND GOING HOME W/PAIN MEDICATIONS. PT STILL ASKING FOR DILAUDID REPORTING PAIN KEEPING HIM AWAKE 7-8 ON PAIN SCALE. IV ANTIBIOTICS RUNNING AT THIS TIME. CALL LIGHT AT SIDE, PT DENIES ANY OTHER NEEDS AT THIS TIME. CALL LIGHT AT BEDSIDE.
[2019-02-24 07:13] VITALS: BP 131/79
--- NOTE | 2019-02-24 07:17 | NUR ---
REPORT FROM BEATA SANCHEZ. PT ALERT AND ORIENTED. NO APPARENT DISTRESS NOTED, RESTING IN BED. PT DENIES ANY PAIN OR DISCOMFORT AT THIS TIME. NO CURRENT WANTS OR NEEDS. IV SITE APPEARS HEALTHY. MARK ALEGRE AND MASTER PRINTER IN PLACE. DISCUSSED POC. PT VERBALIZED UNDERSTANDING. CALL LIGHT WITHIN REACH. WILL CONTINUE TO MONITOR.
--- NOTE | 2019-02-24 08:55 | NUR ---
PT MEDICATED FOR ABD PAIN 8-10 WITH PRN LORTAB. ABD DISTENDED, FIRM, AND TENDER TO TOUCH. ACTIVE BOWEL SOUNDS PRESENT. CALL LIGHT WITHIN REACH. WILL CONTINUE TO MONITOR.
[2019-02-24 11:00] VITALS: BP 113/68
[2019-02-24] MEDS ORDERED: Levaquin PO (11:32)
[2019-02-24] MEDS ORDERED: DICYCLOMINE20 MG PO (11:33)
[2019-02-24] MEDS ORDERED: METRONIDAZOL500 MG PO (11:33)
[2019-02-24] MEDS ORDERED: TRAMADOL HCL50 MG PO (11:35)
[2019-02-24] MEDS ORDERED: PROTONIX40 MG PO (11:37)
--- NOTE | 2019-02-24 12:11 | NUR ---
PT REPORTS LARGE SOFT BM.
--- NOTE | 2019-02-24 13:32 | NUR ---
IV site discontinued, cath intact. No edema , no redness, voices no discomfort.
--- NOTE | 2019-02-24 13:33 | NUR ---
Discharge instructions given. Patient verbalizes understanding of same. Discharged in stable condition via Ambulatory to Home with family. All belongings sent with pt.
[2019-02-25] MEDS ORDERED: LORTAB 1010 MG PO (13:51)
[2019-02-25] MEDS ORDERED: CIPROFLOXACN500 MG PO (13:51)
[2019-02-25] MEDS ORDERED: METRONIDAZOL500 MG PO (13:51)
[2019-02-25] MEDS ORDERED: ONDANSETRON4 MG PO (14:04)
== END 2019-02-24 13:33 | disposition home or self-care (01) ==
LOC: ED 03:19 → ED-I 06:43 → ED 07:03 → MS2 07:04
PROVIDERS: Emergency Medicine; Nurse Practitioner Family; ADMIT Internal Medicine; ATTEND Internal Medicine
DX: C16.1 Malignant neoplasm of fundus of stomach (principal); C79.89 Secondary malignant neoplasm of other specified sites; K29.70 Gastritis, unspecified, without bleeding; K52.9 Noninfective gastroenteritis and colitis, unspecified; K57.30 Diverticulosis of large intestine without perforation or abscess without bleeding; K44.9 Diaphragmatic hernia without obstruction or gangrene; D12.3 Benign neoplasm of transverse colon; K63.5 Polyp of colon; M06.9 Rheumatoid arthritis, unspecified; I95.9 Hypotension, unspecified; I10 Essential (primary) hypertension; E78.5 Hyperlipidemia, unspecified; F41.0 Panic disorder [episodic paroxysmal anxiety]; F81.0 Specific reading disorder; Z87.891 Personal history of nicotine dependence; Z88.0 Allergy status to penicillin
CPT/HCPCS: G0378; J1956; Q9967; S0164

== ENCOUNTER 2019-02-25 09:53 | Emergency (ER) | payer OTHER ==
[~2019-02-25] VITALS: Ht 177.8 cm; Wt 102.7 kg
[~2019-02-25 09:53] MED LIST changes: +DICYCLOMINE20 MG PO; +Levaquin PO; +METRONIDAZOL500 MG PO; +PROTONIX40 MG PO; +TRAMADOL HCL50 MG PO
[2019-02-25 10:47] LABS: HEMATOCRIT 39.9 % (39.0-50.0); HEMOGLOBIN 13.2 g/dl (14.0-18.0); IMMATURE GRANULOCYTES 0.3 % (0.0-5.0); MEAN CELL VOLUME 87.5 fL CALC (80.0-100.0); MEAN CORPUSCULAR HGB 28.9 pG CALC (26.0-32.0); MEAN CORPUSCULAR HGB CONC 33.1 g/L CALC (32.0-36.0); NEUT# 7.07 thou/uL (1.82-7.42); RED BLOOD COUNT 4.56 mill/uL (4.70-6.10); RED CELL DISTRI WIDTH 13.7 % (11.5-15.5)
[2019-02-25 11:03] LABS: ALBUMIN 4.2 g/dL (3.2-5.0); ALKALINE PHOSPHATASE 78 u/l (38-126); AMYLASE 78 u/l (30-110); ANION GAP 17 (6-22 (CALC)); BUN 4 mg/dL (8-23); BUN/CREATININE RATIO 6 (12-20 (CALC)); CARBON DIOXIDE 23 mmol/l (22-30); CHLORIDE 98 mmol/l (95-108); CREATININE 0.8 mg/dL (0.7-1.3); GFR > 60 ML/MIN (>=60 (CALC)); GFR FOR AFR.AMER. > 60 ML/MIN (>=60 (CALC)); LIPASE 41 u/l (23-300); POTASSIUM 3.9 mmol/l (3.5-5.1); SGOT/AST 30 u/l (19-48); SODIUM 134 mmol/l (137-146); TOTAL PROTEIN 7.4 g/dL (6.3-8.2)
[2019-02-25 11:05] LABS: BILIRUBIN, TOTAL 0.9 mg/dL (0.0-1.4)
[2019-02-25 11:39] LABS: URINE BILIRUBIN - DIPSTICK NEGATIVE (NEGATIVE); URINE BLOOD DIPSTICK NEGATIVE (NEGATIVE); URINE COLOR YELLOW; URINE GLUCOSE - DIPSTICK NEGATIVE (NEGATIVE); URINE KETONE NEGATIVE (NEGATIVE); URINE LEUK ESTERASE NEGATIVE (NEGATIVE); URINE NITRITE - DIPSTICK NEGATIVE (Negative); URINE PH 7.5 (4.5-8.0); URINE PROTEIN - DIPSTICK NEGATIVE (NEG-TRACE); URINE SPECIFIC GRAVITY <=1.005; URINE UROBILINOGEN - DIPSTICK 0.2 E.U./dL (0.2)
[2019-02-25] MEDS ORDERED: METRONIDAZOL500 MG PO (13:51)
[2019-02-25] MEDS ORDERED: CIPROFLOXACN500 MG PO (13:51)
[2019-02-25] MEDS ORDERED: LORTAB 1010 MG PO (13:51)
[2019-02-25] MEDS ORDERED: ONDANSETRON4 MG PO (14:04)
[2019-02-25 14:10] VITALS: BP 112/69
== END 2019-02-25 14:13 | disposition left against medical advice (07) ==
LOC: ED 09:53
PROVIDERS: Emergency Medicine
DX: R10.9 Unspecified abdominal pain (principal); R11.0 Nausea; I10 Essential (primary) hypertension; R63.0 Anorexia; Z91.19 Patient's noncompliance with other medical treatment and regimen
CPT/HCPCS: Q9967

== ENCOUNTER 2019-03-05 00:06 | Inpatient (IN) | payer OTHER ==
[2019-03-05] VITALS (8 sets, daily range): BP systolic 118–160; BP diastolic 67–92
[~2019-03-05] VITALS: Ht 177.8 cm; Wt 102.2 kg
[~2019-03-05 00:06] MED LIST changes: +CIPROFLOXACN500 MG PO; +LORTAB 1010 MG PO
[2019-03-05] MEDS ORDERED: TOPROL XL50 MG PO (00:20)
[2019-03-05 01:03] LABS: HEMATOCRIT 41.7 % (39.0-50.0); HEMOGLOBIN 13.7 g/dl (14.0-18.0); IMMATURE GRANULOCYTES 0.5 % (0.0-5.0); MEAN CELL VOLUME 87.2 fL CALC (80.0-100.0); MEAN CORPUSCULAR HGB 28.7 pG CALC (26.0-32.0); MEAN CORPUSCULAR HGB CONC 32.9 g/L CALC (32.0-36.0); NEUT# 9.88 thou/uL (1.82-7.42); RED BLOOD COUNT 4.78 mill/uL (4.70-6.10); RED CELL DISTRI WIDTH 13.5 % (11.5-15.5)
[2019-03-05 01:20] LABS: ALBUMIN 4.4 g/dL (3.2-5.0); ALKALINE PHOSPHATASE 86 u/l (38-126); AMYLASE 89 u/l (30-110); ANION GAP 19 (6-22 (CALC)); BILIRUBIN, TOTAL 0.6 mg/dL (0.0-1.4); BUN 12 mg/dL (8-23); BUN/CREATININE RATIO 18 (12-20 (CALC)); CARBON DIOXIDE 20 mmol/l (22-30); CHLORIDE 100 mmol/l (95-108); CREATININE 0.7 mg/dL (0.7-1.3); GFR > 60 ML/MIN (>=60 (CALC)); GFR FOR AFR.AMER. > 60 ML/MIN (>=60 (CALC)); LIPASE 138 u/l (23-300); POTASSIUM 3.7 mmol/l (3.5-5.1); SGOT/AST 36 u/l (19-48); SODIUM 135 mmol/l (137-146); TOTAL PROTEIN 7.6 g/dL (6.3-8.2)
[2019-03-05 01:27] LABS: URINE BILIRUBIN - DIPSTICK NEGATIVE (NEGATIVE); URINE BLOOD DIPSTICK NEGATIVE (NEGATIVE); URINE COLOR YELLOW; URINE GLUCOSE - DIPSTICK NEGATIVE (NEGATIVE); URINE KETONE >=80 mg/dL (NEGATIVE); URINE LEUK ESTERASE NEGATIVE (NEGATIVE); URINE NITRITE - DIPSTICK NEGATIVE (Negative); URINE PROTEIN - DIPSTICK NEGATIVE (NEG-TRACE); URINE UROBILINOGEN - DIPSTICK 0.2 E.U./dL (0.2)
[2019-03-05 01:31] LABS: MYOGLOBIN 50 ng/mL (0 - 121)
== END 2019-03-05 20:30 | disposition short-term general hospital (02) | DRG 375 ==
LOC: ED 00:06 → ED-I 02:31 → ED 02:45 → ICU 02:46
PROVIDERS: Emergency Medicine; ADMIT Internal Medicine; ATTEND Internal Medicine
DX: C16.8 Malignant neoplasm of overlapping sites of stomach (principal); C79.9 Secondary malignant neoplasm of unspecified site; K50.80 Crohn's disease of both small and large intestine without complications; I10 Essential (primary) hypertension; E78.5 Hyperlipidemia, unspecified; M06.9 Rheumatoid arthritis, unspecified; F41.0 Panic disorder [episodic paroxysmal anxiety]; K29.70 Gastritis, unspecified, without bleeding; F81.0 Specific reading disorder; F32.9 Major depressive disorder, single episode, unspecified; Z87.891 Personal history of nicotine dependence

== ENCOUNTER 2019-03-12 11:35 | Emergency (ER) | payer OTHER ==
[~2019-03-12] VITALS: Ht 177.8 cm; Wt 102.0 kg
[~2019-03-12 11:35] MED LIST changes: +TOPROL XL50 MG PO
[2019-03-12] MEDS ORDERED: DULCOLAX5 MG PO (12:51)
[2019-03-12] MEDS ORDERED: MIRALAX3350 N1 PO (12:51)
[2019-03-12 13:18] VITALS: BP 156/78
[2019-03-12] MEDS ORDERED: HYDROCO/APAP1 TA9 PO (13:23)
== END 2019-03-12 13:28 | disposition home or self-care (01) ==
LOC: ED 11:35
DX: I10 Essential (primary) hypertension (principal); K59.00 Constipation, unspecified

== ENCOUNTER 2019-03-29 23:15 | Emergency (ER) | payer OTHER ==
[2019-03-29 23:15] VITALS: BP 171/79
[~2019-03-29 23:15] MED LIST changes: +DULCOLAX5 MG PO; +HYDROCO/APAP1 TA9 PO; +MIRALAX3350 N1 PO
== END 2019-03-29 23:36 | disposition left against medical advice (07) | DRG 951 ==
LOC: ED 23:15 → LWOBS 23:30 → ED 23:30 → LWOBS 23:36
DX: Z53.21 Procedure and treatment not carried out due to patient leaving prior to being seen by health care provider (principal)